=== PATIENT | male | born 1985 | race Two or more races ===

== ENCOUNTER 2024-04-15 08:59 | Inpatient (IN) | payer MEDICAID ==
[2024-04-15] MEDS ORDERED: Ondansetron 4 MG/2 ML SDV IV PRN (09:17)
[2024-04-15] MEDS ORDERED: Acetaminophen 325 MG Tab PO PRN (09:17)
[2024-04-15] MEDS ORDERED: Sodium Chloride 0.9% 10 ML Syringe FLUSH PRN (09:17)
[2024-04-15] MEDS ORDERED: Polyethylene Glycol 3350 Powder 17 GM Packet PO PRN (09:17)
[2024-04-15] MEDS ORDERED: Non-Formulary Medication 1 Each (Baclofen [Baclofen] 5 MG Tablet) PO PRN (09:20)
[2024-04-15] MEDS ORDERED: Baclofen 10 MG Tab PO PRN (09:28)
[2024-04-15 09:44] LABS: BASOPHILS PERCENT AUTO 0.1 % (0.1-1.3); EOSINOPHILS ABSOLUTE AUTO 0.06 K/uL (0.00-0.40); EOSINOPHILS PERCENT AUTO 0.9 % (0.0-5.4); HEMATOCRIT 45.4 % (38.4-49.7); HEMOGLOBIN 16.4 g/dL (12.9-16.9); IMMATURE GRAN PERCENT AUTO 0.3 % (0.0-0.7); LYMPHOCYTES ABSOLUTE AUTO 1.24 K/uL (0.8-3.3); MEAN CORPUSCULAR HEMOGLOBIN 30.3 pg (31.6-35.5); MEAN CORPUSCULAR HGB CONC 36.1 g/dL (31.6-35.5); MEAN CORPUSCULAR VOLUME 83.9 fL (81.4-99.0); MONOCYTES ABSOLUTE AUTO 0.56 K/uL (0.20-0.90); MONOCYTES PERCENT AUTO 8.1 % (3.3-12.6); NEUTROPHILS ABSOLUTE AUTO 5.01 K/uL (1.0-7.6); NEUTROPHILS PERCENT AUTO 72.6 % (40.0-78.1); PLATELET COUNT,PLT 135 K/uL (130-375); RED BLOOD CELL COUNT 5.41 M/uL (4.14-5.76); WHITE BLOOD CELL COUNT,WBC 6.9 K/uL (3.2-11.0)
[2024-04-15] MEDS: Sodium Chloride 0.9% 1,000 ML IV SCH (09:45)
[2024-04-15 09:48] LABS: BASOPHILS ABSOLUTE AUTO 0.01 K/uL (0.00-0.10); IMMATURE GRAN ABSOLUTE AUTO 0.02 K/uL (0.00-0.23)
[2024-04-15] MEDS ORDERED: Vancomycin 1 GM SDV IV SCH (10:00)
[2024-04-15 10:03] LABS: ALANINE AMINOTRANSFERASE,ALT 37 U/L (12-78); ALBUMIN 3.7 g/dL (3.4-5.0); ALKALINE PHOSPHATASE 84 U/L (46-116); ASPARTATE AMNIOTRANSFERASE,AST 23 U/L (15-37); BILIRUBIN TOTAL 1.3 mg/dL (0.2-1.0); BLOOD UREA NITROGEN,BUN 15 mg/dL (7-18); C-REACTIVE PROTEIN 4.07 mg/dL (<0.50); CALCIUM 9.2 mg/dL (8.5-10.1); CARBON DIOXIDE,CO2 27 mmol/L (21-32); CHLORIDE,CL 102 mmol/L (100-108); CREATININE 0.8 mg/dL (0.8-1.3); EST CRCL DRUG DOSING (CG) 129.27 mL/min; ESTIMATED GFR 116 mL/min (>60); GLUCOSE RANDOM 94 mg/dL (74-106); POTASSIUM,K 4.2 mmol/L (3.6-5.2); PROTEIN TOTAL,TP 7.6 g/dL (6.4-8.2); SODIUM,NA 138 mmol/L (140-148)
[2024-04-15 10:04] LABS: ANION GAP 13.2 mmol/L (5.0-14.0)
[2024-04-15] MEDS: Piperacillin/Tazobactam 4.5 GM in Sodium Chloride 0.9% 100 ML IV ONE (10:10)
[2024-04-15] MEDS: Vancomycin 2 GM in Sodium Chloride 0.9% 500 ML IV ONE (11:21)
[2024-04-15] MEDS: Enoxaparin 40 MG/0.4 ML Syringe SUBCUT SCH (11:24)
[2024-04-15] MEDS: Piperacillin/Tazobactam 4.5 GM in Sodium Chloride 0.9% 100 ML IV SCH (13:23)
[2024-04-15] MEDS ORDERED: Doxycycline 100 MG Cap PO SCH (14:00)
[2024-04-15] MEDS: Doxycycline 100 MG Cap PO SCH (19:10)
[2024-04-15] MEDS: Linezolid 600 MG in Premix Bag 1 BAG IV SCH (19:10)
[2024-04-15] MEDS: oxyCODONE 5 MG Tab PO PRN (22:39)
== END 2024-04-18 12:08 | disposition home or self-care (01) | DRG 603 ==
LOC: JP.MS 08:59
PROVIDERS: ADMIT Hospitalist; ATTEND Internal Medicine
DX: L03.116 Cellulitis of left lower limb (principal); S90.862A Insect bite (nonvenomous), left foot, initial encounter; W57.XXXA Bitten or stung by nonvenomous insect and other nonvenomous arthropods, initial encounter; Z79.899 Other long term (current) drug therapy; Z87.891 Personal history of nicotine dependence; Z98.890 Other specified postprocedural states
CPT/HCPCS: 36415; 80053; 83735; 85025; 86140; 87040; 99221; 99231; 99238; A9270-GY; J1650; J2020; J2543; J3370; J3490; J7030; J7040